=== PATIENT | female | born 1935 | race Caucasian/White ===

== ENCOUNTER → 2018-04-19 | Outpatient (CLI) | payer OTHER ==
[2018-04-19 15:21] LABS: Influenza A Negative (NEGATIVE); Influenza B Negative (NEGATIVE)
== END ==
LOC: EDSTATUS 09:47 → LAB UVN 14:32
PROVIDERS: Family Medicine
DX: I69.354 Hemiplegia and hemiparesis following cerebral infarction affecting left non-dominant side (principal); J06.9 Acute upper respiratory infection, unspecified
CPT/HCPCS: 87804